=== PATIENT | male | born 1985 | race African-American/Black ===

== ENCOUNTER 2016-02-26 02:15 | Emergency (ER) | payer OTHER ==
[~2016-02-26] VITALS: Ht 167.6 cm; Wt 61.2 kg
[~2016-02-26 02:15] MED LIST: NEURONTIN100 MG PO
[2016-02-26 05:32] LABS: ADD MIUA? NO; BILIRUBIN NEGATIVE; BLOOD NEGATIVE; COLOR YELLOW ((YELLOW)); GLUCOSE (STRIP) NEGATIVE; KETONES 15; LEUKOCYTES NEGATIVE; NITRITE NEGATIVE; PH, URINE 5.5 (5-8); PROTEIN (STRIP) NEGATIVE; SPECIFIC GRAVITY 1.023 (1.000-1.030); UCUL ADDED? NO; UROBILINOGEN 0.2 MG/DL (0.2-1.0)
[2016-02-26 05:34] VITALS: BP 117/77
[2016-02-28 13:20] LABS: CHLAMYDIA TRACHOMATIS NEGATIVE; NEISSERIA GONORRHOEAE NEGATIVE
== END 2016-02-26 05:36 ==
LOC: EME → EDBD 02:15 → EME 05:36
PROVIDERS: Emergency Medicine
DX: T76.21XA Adult sexual abuse, suspected, initial encounter (principal); Z87.891 Personal history of nicotine dependence
CPT/HCPCS: 81003; 87491; 87591; 99281; 99285; J0696

== ENCOUNTER 2016-03-04 02:54 | Emergency (ER) | payer OTHER ==
[~2016-03-04] VITALS: Ht 167.6 cm; Wt 64.8 kg
[2016-03-04 03:26] LABS: HEMATOCRIT 39.3 % (38.0-50.0); MCH 31.5 PG (29.0-34.0); MCHC 34.9 G/DL (30.0-36.0); MCV 90.3 FL (86-99); MEAN PLAT.VOLUME 9.4 uM^3 (9.0-12.4); PLATELET COUNT 202 K/uL (156-360); RBC DIS.WIDTH-CV 11.5 % (11.8-14.6); RBC DIS.WIDTH-SD 36.6 % (39-53); RED BLOOD COUNT 4.35 M/uL (4.00-5.50); WHITE BLOOD COUNT 5.6 K/uL (4.1-10.2)
[2016-03-04 03:34] LABS: CHLORIDE 106 mEq/L (99-109); POTASSIUM 3.8 mEq/L (3.7-5.4); SODIUM 140 mEq/L (136-147)
[2016-03-04 03:37] LABS: GLUCOSE 84 mg/dL (70-99)
[2016-03-04 03:38] LABS: ANION GAP 10 MEQ/L (2-14)
[2016-03-04 03:39] LABS: TOTAL BILIRUBIN 0.6 mg/dL (0.0-1.0)
[2016-03-04 03:40] LABS: SERUM ETHYL ALCOHOL < 10 mg/dL
[2016-03-04 03:41] LABS: ALKALINE PHOSPHATASE 49 IU/L (3-129); GFR ESTIMATE (CALCULATED) > 59 mL/min/
[2016-03-04 03:42] LABS: UREA NITROGEN (BUN) 7 mg/dL (9-23)
[2016-03-04 03:44] LABS: SALICYLATE < 5.0 MG/DL (15-30)
[2016-03-04 04:11] LABS: ADD MIUA? NO; BILIRUBIN NEGATIVE; BLOOD NEGATIVE; COLOR YELLOW ((YELLOW)); GLUCOSE (STRIP) NEGATIVE; KETONES NEGATIVE; LEUKOCYTES NEGATIVE; NITRITE NEGATIVE; PH, URINE 6.5 (5-8); PROTEIN (STRIP) NEGATIVE; SPECIFIC GRAVITY 1.007 (1.000-1.030); UCUL ADDED? NO; UROBILINOGEN 0.2 MG/DL (0.2-1.0)
[2016-03-04 04:23] LABS: AMPHETAMINE NEGATIVE (500 ng/mL); BENZODIAZEPINES NEGATIVE (150 ng/mL); COCAINE NEGATIVE (150 ng/mL); METHAMPHETAMINE NEGATIVE (500 ng/mL); OPIATES (MORPHINE) NEGATIVE (100 ng/mL); PHENCYCLIDINE NEGATIVE (25 ng/mL); THC CANNABINOIDS NEGATIVE (50 ng/mL); TRICYCLIC ANTIDEPRESSANTS NEGATIVE (300 ng/mL)
[2016-03-04 04:24] LABS: BARBITURATES NEGATIVE (200 ng/mL); INTERNAL CONTROLS VALID? YES; METHADONE NEGATIVE (200 ng/mL); OXYCODONE NEGATIVE (100 ng/mL); PROPOXYPHENE NEGATIVE (300 ng/mL)
[2016-03-04 05:56] VITALS: BP 140/65
== END 2016-03-04 05:59 ==
LOC: EME 02:54
PROVIDERS: Emergency Medicine
DX: T45.0X2A Poisoning by antiallergic and antiemetic drugs, intentional self-harm, initial encounter (principal); T39.1X2A Poisoning by 4-Aminophenol derivatives, intentional self-harm, initial encounter
CPT/HCPCS: 80053; 81003; 85027; 93005; 99281; 99285; G0480